=== PATIENT | male | born 1935 | race Caucasian/White ===

== ENCOUNTER → 2017-03-27 | Outpatient (REF) | payer MEDICARE, OTHER | LOC: M LAB REF 12:42 | PROVIDERS: ATTEND Internal Medicine | DX: M10.9 Gout, unspecified (principal) ==

== ENCOUNTER 2017-06-24 07:38 | Observation (INO) | payer MEDICARE, OTHER ==
[~2017-06-24] VITALS: Ht 177.8 cm; Wt 98.7 kg
[2017-06-24] MEDS ORDERED: HYDR12.55 PO (07:54)
[2017-06-24] MEDS ORDERED: AMLO10TA PO (07:54)
[2017-06-24] MEDS ORDERED: FLOM5CAP PO (07:54)
[2017-06-24] MEDS ORDERED: PRED20TA PO (07:54)
[2017-06-24] MEDS ORDERED: ATOR1TAB19 PO (07:54)
[2017-06-24] MEDS ORDERED: ZYLO100T PO (07:54)
[2017-06-24] MEDS ORDERED: IRBE150T12 PO (07:54)
[2017-06-24] MEDS ORDERED: KETOROLAC 30 MG/ML VIAL (J1885) IM ONE (09:45)
[2017-06-24 09:53] LABS: BASO # 0.1 K/mm3 (0.0-0.2); BASO % 0.6 % (0.0-1.0); EOS # 0.3 K/mm3 (0.0-0.50); EOS % 2.7 % (0.0-3.0); LARGE UNSTAINED CELL # 0.1 K/mm3 (0.0-0.4); LARGE UNSTAINED CELL % 1.2 % (0.0-4.0); LYMPH # 1.3 K/mm3 (1.5-4.5); LYMPH % 12.5 % (24.0-44.0); MEAN CORPUSCULAR HEMOGLOBIN 32.9 pg (27.0-33.0); MEAN CORPUSCULAR HGB CONC 35.8 g/dl (32.0-36.5); MEAN CORPUSCULAR VOLUME 91.9 fl (80.0-96.0); MONO # 0.9 K/mm3 (0.0-0.8); MONO % 8.6 % (0.0-5.0); NEUTROPHILS # 7.7 K/mm3 (1.8-7.7); NEUTROPHILS % 74.5 % (36.0-66.0); PLATELET COUNT, AUTOMATED 193 k/mm3 (150-450); RED CELL DISTRIBUTION WIDTH 12.3 % (11.5-14.5); WHITE BLOOD COUNT 10.3 K/mm3 (4.0-10.0)
[2017-06-24] MEDS ORDERED: KETOROLAC 30 MG/ML VIAL (J1885) IV ONE (10:00)
[2017-06-24 10:13] LABS: ALBUMIN 3.7 GM/DL (3.2-5.2); ALBUMIN/GLOBULIN RATIO 1.16 (1.00-1.93); ALKALINE PHOSPHATASE 90 U/L (45-117); ALT/SGPT 34 U/L (12-78); AMYLASE 38 U/L (25-115); ANION GAP 8 MEQ/L (8-16); AST/SGOT 19 U/L (15-37); BILIRUBIN,TOTAL 1.9 MG/DL (0.2-1.0); BLOOD UREA NITROGEN 23 MG/DL (7-18); CARBON DIOXIDE LEVEL 30 MEQ/L (21-32); CHLORIDE LEVEL 102 MEQ/L (98-107); CREATININE FOR GFR 0.96 MG/DL (0.70-1.30); GLOMERULAR FILTRATION RATE > 60.0 (>35); GLUCOSE, FASTING 98 MG/DL (83-110); POTASSIUM SERUM 3.5 MEQ/L (3.5-5.1); SODIUM LEVEL 140 MEQ/L (136-145); TOTAL PROTEIN 6.9 GM/DL (6.4-8.2)
[2017-06-24] MEDS ORDERED: NS 1,000 ML IV ONE (11:00)
[2017-06-24] MEDS ORDERED: ERTAPENEM SODIUM 1 GM in NS MINI-BAG PLUS 50 ML IV ONE (12:00)
[2017-06-24] MEDS ORDERED: ACETAMINOPHEN TAB 650MG DOSE (2X325MG) PO PRN (13:15)
[2017-06-24] MEDS ORDERED: ONDANSETRON 4MG/2ML VIAL (J2405) IV PRN (13:15)
[2017-06-24] MEDS ORDERED: NS 1,000 ML IV SCH (13:30)
[2017-06-24] MEDS ORDERED: ASPI1TAB PO (13:50)
--- NOTE | 2017-06-24 13:54 | HPE ---
DATE OF ADMISSION: 06/24/2017 This is a patient of Dr. Earl. The patient's pain management doctor is in [place], [place]. CHIEF COMPLAINT: Diarrhea. SUMMARY OF HIS PRESENTATION: This is an 81-year-old with a three-day history of abdominal pain and diarrhea. He had been having increasing left-sided buttock pain within the last week. This was similar to his previous episodes of sciatica. He has a history of spinal stenosis. He went to Dr. Earl's office and was given a prescription for steroids. The steroids resulted in abdominal pain and diarrhea, multiple times a day, too many to count, made worse with eating. He called for further advise. He was told to decrease the dose in half. He has continued with painful diarrhea he could not stop. He was able to go out to eat to [place] last night but had to leave abruptly because again he was having further diarrhea. He has not had any recent antibiotics. He uses [facility]. No recent history of travel. No known sick contacts. PAST MEDICAL HISTORY: Notable for an abscessed Meckel's diverticula, gallbladder removal, removal of the right portion of his kidney presumably related to renal cell carcinoma, history of spinal stenosis status post multiple epidurals. He is unsure of when he had the last one. Past medical history is notable for gout, hypertension, benign prostatic hypertrophy, hyperlipidemia, spinal stenosis, presumed renal cell carcinoma. ALLERGIES: He has no known drug allergies. MEDICATIONS: At home are listed as allopurinol, Norvasc, prednisone, irbesartan, Flomax, hydrochlorothiazide, atorvastatin. FAMILY HISTORY: Unremarkable due to advanced age. SOCIAL HISTORY: He has never been a smoker. 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 REVIEW OF SYSTEMS: Notable for no headache. No visual changes. No weight gain or weight loss. No night sweats. No chest pain. No orthopnea. No paroxysmal nocturnal dyspnea. Abdominal pain as described. No history of seizures. Otherwise unremarkable. PHYSICAL EXAMINATION: Temperature is 97.7, pulse 56, respiratory rate 20, blood pressure 116/74, 95% on room air. Body mass index is 31.2. He is awake, appropriately interactive, pleasantly conversant with deeply tanned skin. Sinuses are nontender. Pupils are equal, round, and reactive, show evidence of cataract extraction. Nasal septum is midline. Mucous membranes are tacky. Neck is supple. No cervical, supraclavicular, axillary or inguinal adenopathy is noted. Breathing is symmetrical, rested. I:E ratio is 1:3. No costovertebral angle (CVA) tenderness. No sacral edema. Heart is distant sounding, normal S1, S2. He has a systolic ejection murmur 3/6 at the left sternal border. No obvious radiation. Capillary refill is less than two seconds. Abdomen is notable for hyperactive bowel sounds. Mild diffuse tenderness without rebound or guarding. There is trace bilateral lower extremity edema. LABORATORY DATA: White cell count is 10.3, hemoglobin 17, platelets 193, neutrophils 74%, monocytes 8.6. Sodium 140, potassium 3.5, chloride 102, bicarbonate 30, BUN 23, creatinine 0.9, glucose of 98. Liver function tests and lipase within normal limits. Urine culture is pending. Abdominal and pelvic CT is read by a local radiologist as left colonic diverticulosis with fat stranding and mural thickening suggesting sigmoid colonic diverticulitis. No abscess or free air. He has retroperitoneal and bilateral iliac lymphadenopathy with the largest node being 2.5 x 2 cm and this is a new finding. Status post partial right nephrectomy and cholecystectomy. There is no EKG for me to review. ASSESSMENT: This is an 81-year-old with left-sided diverticulitis requiring an observation stay. PLAN: 1. Infectious disease. I am concerned about the possibility of clostridium (C) difficile colitis. We will give the patient Cipro for the possibility of diverticulitis and oral vancomycin. In consideration of C. difficile, (gastrointestinal) panel is ordered and pending. The patient has had previous colonoscopies, the last was within a couple of years ago according to the patient, done in [place], [place] and was without polyps. The previous one prior to that was five years before which showed five polyps. 2. The patient has a history of hypertension. We will put hold parameters on his home medications. We will give him a little bit of IV fluids. At this point, as he has had relatively profuse diarrhea, we will also give a low residual diet. 3. The patient has sciatica which has improved according to him. We will not order any further steroids. 4. The patient has gout. We will continue his allopurinol. 5. The patient has benign prostatic hypertrophy (BPH). We will continue his Flomax. 6. Deep vein thrombosis (DVT) prophylaxis is ordered.
[2017-06-24 16:00] VITALS: BP 153/69
[2017-06-24] MEDS: TAMSULOSIN 0.4 MG CAP PO SCH (17:26)
[2017-06-24] MEDS: amLODIPine 10 MG TAB PO SCH (17:26)
[2017-06-24] MEDS: IRBESARTAN 150 MG TAB PO SCH (17:27)
[2017-06-24] MEDS: VANCOMYCIN ORAL SOL 250MG/5ML ORAL SYRINGE PO SCH ×2 (17:29→23:14)
[2017-06-24] MEDS: CIPROFLOXACIN 400 MG in APPROPRIATE DILUENT 1 EA IV SCH (17:29)
[2017-06-24 20:39] VITALS: BP 133/63
[2017-06-24] MEDS: HEPARIN SOD (PORCINE) 5000 UNITS/ML VIAL SC SCH (20:50)
[2017-06-24] MEDS ORDERED: ATORVASTATIN 10 MG TAB PO SCH (21:00)
[2017-06-25 05:10] VITALS: BP 149/69
[2017-06-25] MEDS: CIPROFLOXACIN 400 MG in APPROPRIATE DILUENT 1 EA IV SCH (05:45)
[2017-06-25] MEDS: VANCOMYCIN ORAL SOL 250MG/5ML ORAL SYRINGE PO SCH (05:45)
--- NOTE | 2017-06-25 07:59 | ECGEPIP ---
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
[2017-06-25] MEDS: TAMSULOSIN 0.4 MG CAP PO SCH (08:57)
[2017-06-25 08:58] VITALS: BP 149/69
[2017-06-25] MEDS: HEPARIN SOD (PORCINE) 5000 UNITS/ML VIAL SC SCH (08:58)
[2017-06-25] MEDS: IRBESARTAN 150 MG TAB PO SCH (08:58)
[2017-06-25] MEDS: amLODIPine 10 MG TAB PO SCH (08:58)
[2017-06-25] MEDS ORDERED: ALLOPURINOL 100 MG TAB PO SCH (09:00)
[2017-06-25] MEDS ORDERED: CIPR-249 PO (11:22)
[2017-06-25] MEDS ORDERED: FLAG500T PO (11:22)
[2017-06-25] MEDS ORDERED: BACITAB PO (11:22)
--- NOTE | 2017-06-25 12:38 | REP ---
CT CHEST WITHOUT CONTRAST: HISTORY: Adenopathy. Retroperitoneal adenopathy seen on today's abdominal CT study. CT FINDINGS: No infiltrate is seen in the lung haddad. No pleural or pericardial effusion is seen. There is a small triangular area of fibrosis in the left lower lobe on image number 69 of the lung window settings. No other pulmonary nodular opacity is seen. There is no evidence of hilar or mediastinal adenopathy on this noncontrast study. Vascular calcification is noted. No axillary or supraclavicular adenopathy is seen. Bone window settings show no bony destructive lesion. There is one left retrocrural lymph node which measures 1.1 cm in greatest diameter. IMPRESSION: No adenopathy is seen above the diaphragm. Borderline retrocrural lymph node 1.1 cm in diameter. Vascular calcification. Otherwise, no acute findings. Signed by Jose Maria Gonzalez MD 06/25/2017 12:41 P
--- NOTE | 2017-06-25 13:53 | REP ---
CT study abdomen and pelvis without IV or oral contrast: Renal stone protocol. History: Left-sided pain. The patient gives a history of renal cell carcinoma status post partial right nephrectomy. Comparison study June 23, 2010. CT findings: Preliminary industrial technologist radiograph demonstrates an unremarkable bowel gas pattern. There are clips in right upper and right mid to lower abdomen. The lung bases are clear. There is no evidence of pleural effusion. The liver and the spleen are normal in size and homogeneous in texture. A small accessory splenule is seen. No pancreatic abnormality is observed. The gallbladder is surgically absent. There are clips in the perinephric fat on the right and there are areas of peripherally calcified fat density material in the perinephric fat on the right as well adjacent the upper pole and lower pole consistent with postoperative fat necrosis. There is a little more calcification in these them but they are otherwise unchanged from the 2010 study. No recurrent renal mass lesion is seen. No hydronephrosis is seen on either side. There is vascular calcification in each renal sinus. No definite intrarenal nephrolithiasis is noted. However, there is new retroperitoneal lymphadenopathy just below the level of the renal vascular pedicles and extending down to the aortic bifurcation. There are some mildly enlarged left and right iliac lymph nodes. No inguinal adenopathy is seen. There is diverticulosis affecting the sigmoid colon and the descending colon. There is some fluid in the left lower paracolic gutter and there is a suggestion of mild mural thickening and pericolonic edema in the sigmoid colon which may reflect mild sigmoid diverticulitis. No bony destructive lesion is seen. No abdominal wall defect is observed. Impression: 1. Left colonic diverticulosis with fat stranding and mural thickening suggesting sigmoid colon diverticulitis. No abscess or free air. 2. Retroperitoneal and bilateral iliac lymphadenopathy. The largest of these lymph nodes is a aortocaval node measuring 2.5 x 2.0 cm. This is a new finding. Lymphoma versus metastatic disease. 3. Status post partial right nephrectomy and cholecystectomy. Signed by Jose Maria Gonzalez MD 06/25/2017 03:05 P
--- NOTE | 2017-06-25 16:03 | DSES ---
DATE OF ADMISSION: 06/24/2017 DATE OF DISCHARGE: 06/25/2017 PRIMARY CARE PROVIDER: David Earl Jr., MD CONSULTANTS: None. PROCEDURES: None. COMPLICATIONS: None. DISCHARGE DIAGNOSES: 1. Diverticulitis. 2. Retroperitoneal and bilateral iliac lymphadenopathy. 3. History of renal cell carcinoma. 4. Hypertension. 5. Sciatica. 6. Gout. 7. Benign prostatic hypertrophy. 8. History of abscess and Meckel's diverticulum. 9. History of spinal stenosis status post multiple epidurals. 10. Hyperlipidemia. HOSPITALIZATION COURSE: Patient is an 81-year-old male who presented to [facility] on 06/24/2017, with abdominal pain and diarrhea. Diagnostic workup was performed and patient was found to have diverticulitis. Workup for Clostridium (C) difficile was also started. Patient was started on empiric antibiotics. Later, gastrointestinal (GI) panel showed negative for C. difficile and antibiotic regimen was adjusted. However, the CT abdomen and pelvis without contrast showed patient has multiple retroperitoneal and bilateral iliac lymphadenopathy and differential involving lymphoma versus metastatic disease. After reviewing the imaging with radiology and discussing the case with oncologist, Dr. Douglass, patient is recommended to followup in the oncology clinic to pursue further workup. Since admission, patient's symptoms show significant improvements and on 06/25/2017, patient is discharged home with antibiotic for diverticulitis and patient is instructed to followup with primary care provider in 1-2 weeks and patient should followup with oncology clinic within 2 weeks and a referral letter was sent through our hospital. OBJECTIVE: VITAL SIGNS: Temperature 98.1, pulse 58, respirations 18, blood pressure 149/69, pulse oximetry 95% in room air. LABORATORY DATA: WBC 10.3, hemoglobin 17, hematocrit 47.4, platelet count 193. Sodium 140, potassium 3.5, chloride 102, carbon dioxide 30, BUN 23, creatinine 0.96, GFR greater than 60, fasting glucose 98, calcium 9, total bilirubin 1.9, AST 19, ALT 34, alkaline phosphatase 30, total protein 6.9, albumin 3.7, amylase 38, lipase 92, TSH 2.64. Carcinoembryonic antigen level (CEA) pending. Urinalysis negative. Microbiology: Urine culture is negative. GI panel is negative. IMAGING STUDIES: CT of the abdomen and pelvis without contrast on 06/24/2017, showed left colonic diverticulosis with fat stranding and mural thickening suggestive of sigmoid colon diverticulitis. No abscess or free air. Retroperitoneal and bilateral iliac lymphadenopathy. Largest lymph node is measured at 2.5 x 2 cm. DISCHARGE MEDICATIONS: - ciprofloxacin 500 mg by mouth twice a day for 7 days - Flagyl 500 mg by mouth every 8 hours for 7 days - Bacid one tablet by mouth with meals for 7 days - allopurinol 100 mg by mouth daily - Norvasc 10 mg by mouth daily - aspirin 81 mg by mouth daily - atorvastatin 10 mg by mouth daily - hydrochlorothiazide 15.5 mg by mouth daily - irbesartan 150 mg by mouth daily - Flomax 0.4 mg by mouth daily DISCHARGE INSTRUCTIONS: Discontinue lines. Discharge home. Activity as tolerated. Diet as tolerated. Patient is recommended to followup with primary care provider, Dr. Earl, in 1-2 weeks. Patient is recommended to establish and followup with oncology clinic within 2 weeks. A referral request is sent through the hospitalist office. Case also discussed with oncologist, Dr. Sylvia Douglass. DISCHARGE CONDITION: Stable. DISCHARGE TIME: Greater than 30 minutes.
[2017-06-26 11:41] LABS: CARCINOEMBRYONIC ANTIGEN 3.3 NG/ML (<2.5)
== END 2017-06-25 13:14 | disposition home or self-care (01) ==
LOC: M ED 07:38 → M ED INP 13:12 → M MSPAV 16:00
PROVIDERS: ADMIT Internal Medicine; ATTEND Internal Medicine
DX: K57.32 Diverticulitis of large intestine without perforation or abscess without bleeding (principal); R59.0 Localized enlarged lymph nodes; Z85.528 Personal history of other malignant neoplasm of kidney; I10 Essential (primary) hypertension; M54.30 Sciatica, unspecified side; M10.9 Gout, unspecified; N40.0 Benign prostatic hyperplasia without lower urinary tract symptoms; M48.00 Spinal stenosis, site unspecified; E78.5 Hyperlipidemia, unspecified; R10.9 Unspecified abdominal pain; Z79.899 Other long term (current) drug therapy; Z79.82 Long term (current) use of aspirin; Z79.52 Long term (current) use of systemic steroids
CPT/HCPCS: 71250; 74176; 80053; 81001; 82150; 82378; 83690; 84443; 85025; 87086; 87507; 93005; 96365; 96375; 96376; 99284; G0378; J0744; J1335; J1885

== ENCOUNTER → 2017-07-17 | Outpatient (CLI) | payer MEDICARE, OTHER ==
[~2017-07-17] MED LIST: AMLO10TA PO; ASPI1TAB PO; ATOR1TAB19 PO; BACITAB PO; CIPR-249 PO; FLAG500T PO; FLOM5CAP PO; HYDR12.55 PO; IRBE150T12 PO; PRED20TA PO; ZYLO100T PO
--- NOTE | 2017-07-17 15:49 | REP ---
PET/CT: History: Lymphadenopathy. The patient is status post partial right nephrectomy for renal carcinoma. Restaging. Comparisons: Comparison CT abdomen and pelvis June 24, 2017. Comparison chest CT June 24, 2017. There is a comparison CT study from June 23, 2010 as well. TECHNIQUE: 51 minutes following the intravenous injection of a 10.1 mCi dose of F-18 FDG, three-dimensional PET scintigraphy is acquired from the skull base to the proximal thighs. Triplanar noncontrast CT scanning is acquired through the same anatomic range for attenuation correction, and image registration with scan parameters optimized to minimize radiation exposure to the patient. PET scintigraphy and CT datasets were fused and displayed on a workstation with multiplanar and projection display capability. PET/CT Findings: There is low-level hypermetabolic uptake the periaortic and pericaval lymphadenopathy noted on recent CTs in the retroperitoneum. Maximum standard uptake value ranges from 2.5 to 3.3 in these mildly enlarged lymph nodes. There is hypermetabolic uptake in the bilateral internal iliac lymph nodes as well, maximum standard uptake value 3.0 to 3.9. No other abnormal hypermetabolic uptake is seen. Postoperative changes are seen in the gallbladder fossa, at the right kidney, and in the right lower abdomen. No abnormal hepatic hypermetabolic uptake is seen. No hypermetabolic uptake is seen within the chest. No evidence of pulmonary nodule. No abnormal skeletal hypermetabolic uptake is seen. Impression: The recently noted retroperitoneal and bilateral iliac lymphadenopathy is mildly hypermetabolic. I cannot exclude lymphoproliferative or other malignancy. Signed by Jose Maria Gonzalez MD 07/17/2017 04:09 P
== END ==
LOC: M PLARAD 09:11
PROVIDERS: ATTEND Internal Medicine Medical Oncology
DX: R59.0 Localized enlarged lymph nodes (principal); C64.1 Malignant neoplasm of right kidney, except renal pelvis
CPT/HCPCS: 78815; A9552

== ENCOUNTER → 2017-07-19 | Outpatient (REF) | payer MEDICARE, OTHER | LOC: M LAB REF 12:56 | PROVIDERS: ATTEND Internal Medicine Medical Oncology | DX: R59.0 Localized enlarged lymph nodes (principal) ==

== ENCOUNTER → 2017-07-26 | Outpatient (CLI) | payer MEDICARE, OTHER ==
--- NOTE | 2017-07-26 16:13 | REP ---
MRI lumbar spine without contrast: History: Progressive lumbar radiculopathy. Prior history of kidney carcinoma. History of retroperitoneal lymphadenopathy. Comparison is made with PET-CT images from July 17, 2017. Intravenous contrast could not be administered as requested because of lack of IV access. Technique: Sagittal and axial T1 and T2-weighted scans are acquired in the usual fashion with and without fat saturation. Sequences include spin echo, turbo spin-echo, and STIR imaging sequences. MRI findings: Periaortic retroperitoneal lymphadenopathy is noted as seen on recent PET/CT. Normal caliber aorta. No other extra spinal abnormality is observed. Cortical and medullary bone signal intensity are normal. Alignment is normal. Conus medullaris is normal in position and appearance at L1. Axial and sagittal images at L1-L2 disc level show moderate facet hypertrophy bilaterally. Borderline canal size is seen. Minimal diffuse disc bulging. AP dimension of the thecal sac at this level is 10 mm. No neural foraminal narrowing is seen. At L2-L3, there is mild central canal stenosis due to developmentally short pedicles, diffuse disc bulging, and ligamentum flavum and facet hypertrophy. Midline AP dimension of the thecal sac is 9 mm at this level. No neural foraminal narrowing. At L3-L4, there is mild to moderate central canal stenosis due to short pedicles, diffuse disc bulging, ligamentum flavum and facet hypertrophy. AP dimension of the thecal sac at this level is 10 mm. There is moderate right and left-sided L3-4 neural foraminal encroachment. At L4-L5, there is moderate to marked central canal stenosis due to posterior disc bulging, osteophytic ridging, short pedicles and severe osteoarthritic facet and ligamentum flavum hypertrophy. The thecal sac is quite effaced with no observable T2-weighted CSF signal. A 7 mm mid sagittal AP dimension is observed. There is marked bilateral neural foraminal narrowing at L4-L5. At L5-S1, there is facet hypertrophy bilaterally. No central canal stenosis is seen. There is moderate left-sided and minimal right-sided neural foraminal encroachment. Impression: 1. Retroperitoneal lymphadenopathy. 2. 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 Multilevel significant neural foraminal narrowing. Mild central canal stenosis at L3-4 and L2-3. Advanced osteoarthritic facet disease. Signed by Jose Maria Gonzalez MD 07/26/2017 06:02 P
== END ==
LOC: M RAD 10:19
PROVIDERS: ATTEND Internal Medicine Medical Oncology
DX: R59.0 Localized enlarged lymph nodes (principal); M47.26 Other spondylosis with radiculopathy, lumbar region

== ENCOUNTER 2018-04-27 14:23 | Emergency (ER) | payer MEDICARE, OTHER ==
[2018-04-27] MEDS: NS 1,000 ML IV (14:46)
[2018-04-27 16:37] LABS: BASO # 0.1 10^3/uL (0.0-0.2); BASO % 0.3 % (0.0-1.0); EOS # 0.1 10^3/uL (0.0-0.50); EOS % 0.4 % (0.0-3.0); HEMATOCRIT 33.2 % (42.0-52.0); HEMOGLOBIN 10.9 g/dl (13.5-17.5); IMMATURE GRANULOCYTE % 3.1 % (0-3.0); LYMPH # 1.1 10^3/uL (1.5-4.5); LYMPH % 6.2 % (24.0-44.0); MEAN CORPUSCULAR HEMOGLOBIN 31.3 pg (27.0-33.0); MEAN CORPUSCULAR HGB CONC 32.8 g/dl (32.0-36.5); MEAN CORPUSCULAR VOLUME 95.4 fl (80.0-96.0); MONO # 0.7 10^3/uL (0.0-0.8); MONO % 3.8 % (0.0-5.0); NEUTROPHILS # 15.2 10^3/uL (1.8-7.7); NEUTROPHILS % 86.2 % (36.0-66.0); PLATELET COUNT, AUTOMATED 141 10^3/uL (150-450); RED BLOOD COUNT 3.48 10^6/uL (4.30-6.10); RED CELL DISTRIBUTION WIDTH 15.1 % (11.5-14.5); WHITE BLOOD COUNT 17.6 10^3/uL (4.0-10.0)
[2018-04-27 16:59] LABS: ALBUMIN 2.5 GM/DL (3.2-5.2); ALBUMIN/GLOBULIN RATIO 0.96 (1.00-1.93); ALKALINE PHOSPHATASE 109 U/L (45-117); ALT/SGPT 14 U/L (12-78); ANION GAP 8 MEQ/L (8-16); AST/SGOT 13 U/L (7-37); BILIRUBIN,DIRECT 0.2 MG/DL (0.0-0.2); BILIRUBIN,TOTAL 0.6 MG/DL (0.2-1.0); BLOOD UREA NITROGEN 5 MG/DL (7-18); CALCIUM LEVEL 7.7 MG/DL (8.8-10.2); CARBON DIOXIDE LEVEL 30 MEQ/L (21-32); CHLORIDE LEVEL 105 MEQ/L (98-107); CREATININE FOR GFR 0.68 MG/DL (0.70-1.30); GLOMERULAR FILTRATION RATE > 60.0 (>35); GLUCOSE, FASTING 111 MG/DL (70-100); LIPASE 78 U/L (73-393); POTASSIUM SERUM 3.6 MEQ/L (3.5-5.1); SODIUM LEVEL 143 MEQ/L (136-145); TOTAL PROTEIN 5.1 GM/DL (6.4-8.2)
[2018-04-27 17:00] LABS: LACTIC ACID SEPSIS PROTOCOL 1.3 MMOL/L (0.4-2.0)
== END 2018-04-27 17:53 | disposition home or self-care (01) ==
LOC: M ED 14:23
DX: A04.72 Enterocolitis due to Clostridium difficile, not specified as recurrent (principal); I48.92 Unspecified atrial flutter; I10 Essential (primary) hypertension; C61 Malignant neoplasm of prostate; Z85.528 Personal history of other malignant neoplasm of kidney; Z90.5 Acquired absence of kidney; Z92.21 Personal history of antineoplastic chemotherapy; I51.7 Cardiomegaly; Z79.01 Long term (current) use of anticoagulants; Z79.899 Other long term (current) drug therapy
CPT/HCPCS: 71046

== ENCOUNTER → 2018-04-30 | Outpatient (CLI) | payer MEDICARE, OTHER | LOC: M CARPUL 11:49 | DX: I48.92 Unspecified atrial flutter (principal); I42.1 Obstructive hypertrophic cardiomyopathy; Z79.899 Other long term (current) drug therapy | CPT/HCPCS: 93306 ==

== ENCOUNTER → 2018-05-02 | Outpatient (CLI) | payer MEDICARE, OTHER | LOC: M RAD 11:59 | DX: J90 Pleural effusion, not elsewhere classified (principal); I51.7 Cardiomegaly; R59.1 Generalized enlarged lymph nodes; C61 Malignant neoplasm of prostate; C77.2 Secondary and unspecified malignant neoplasm of intra-abdominal lymph nodes; C60.9 Malignant neoplasm of penis, unspecified; Z85.528 Personal history of other malignant neoplasm of kidney | CPT/HCPCS: 71046 ==

== ENCOUNTER → 2018-05-02 | Outpatient (REF) | payer MEDICARE, OTHER ==
[2018-05-02 20:09] LABS: ERYTHROCYTE SEDIMENTATION RATE 62 mm/hr (0-20)
== END ==
LOC: M LAB REF 17:26
DX: R59.1 Generalized enlarged lymph nodes (principal); C61 Malignant neoplasm of prostate; C77.2 Secondary and unspecified malignant neoplasm of intra-abdominal lymph nodes; C60.9 Malignant neoplasm of penis, unspecified; I51.7 Cardiomegaly; Z85.528 Personal history of other malignant neoplasm of kidney

== ENCOUNTER → 2018-05-06 | Outpatient (REF) | payer MEDICARE, OTHER ==
[2018-05-06 14:23] LABS: PROSTATIC SPECIFIC AG MONITOR 0.82 NG/ML (< 4.0)
== END ==
LOC: M LAB REF 13:22
DX: Z85.528 Personal history of other malignant neoplasm of kidney (principal); R59.1 Generalized enlarged lymph nodes; C61 Malignant neoplasm of prostate; C77.2 Secondary and unspecified malignant neoplasm of intra-abdominal lymph nodes; R60.9 Edema, unspecified; I51.7 Cardiomegaly
CPT/HCPCS: 84153

== ENCOUNTER → 2018-05-09 | Outpatient (CLI) | payer MEDICARE, OTHER ==
[~2018-05-09] MED LIST changes: -AMLO10TA PO; -ASPI1TAB PO; -ATOR1TAB19 PO; -BACITAB PO; -CIPR-249 PO; -FLAG500T PO; -FLOM5CAP PO; +GASTROGRAFIN SOLUTION 30ML (Q9963) As Ordered; -HYDR12.55 PO; -IRBE150T12 PO; +ISOVUE-370 76% 100ML VIAL (Q9967) As Ordered; -PRED20TA PO; -ZYLO100T PO
== END ==
LOC: M RAD 14:03
DX: C61 Malignant neoplasm of prostate (principal); J90 Pleural effusion, not elsewhere classified; J98.11 Atelectasis; I70.0 Atherosclerosis of aorta; I25.10 Atherosclerotic heart disease of native coronary artery without angina pectoris; K57.30 Diverticulosis of large intestine without perforation or abscess without bleeding
CPT/HCPCS: Q9963

== ENCOUNTER → 2018-07-12 | Outpatient (REF) | payer MEDICARE, OTHER ==
[2018-07-12 14:29] LABS: PROSTATIC SPECIFIC AG MONITOR 0.45 NG/ML (< 4.0)
== END ==
LOC: M LAB REF 13:27
DX: R59.1 Generalized enlarged lymph nodes (principal); Z85.528 Personal history of other malignant neoplasm of kidney; C61 Malignant neoplasm of prostate; C77.2 Secondary and unspecified malignant neoplasm of intra-abdominal lymph nodes; R60.9 Edema, unspecified; I51.7 Cardiomegaly
CPT/HCPCS: 84153

== ENCOUNTER 2019-04-26 19:12 | Emergency (ER) | payer MEDICARE, OTHER ==
[~2019-04-26] VITALS: Ht 177.8 cm; Wt 90.9 kg
[2019-04-26 19:12] VITALS: BP 187/91
[~2019-04-26 19:12] MED LIST changes: +AMLO10TA PO; +ASPI81TA26 PO; +ATOR1TAB19 PO; +BACITAB PO; +CIPR-249 PO; +ELIQ2.5T PO; +FLAG500T PO; +FLOM0.4C39 PO; -GASTROGRAFIN SOLUTION 30ML (Q9963) As Ordered; +HYDR-3910 PO; +HYDR12.55 PO; +IRBE150T12 PO; -ISOVUE-370 76% 100ML VIAL (Q9967) As Ordered; +LEVO500T3 PO; +METO1TAB7 PO; +PRED20TA PO; +VANC125C3 PO; +VITAD1000T PO; +ZYLO100T2 PO
[2019-04-26] MEDS ORDERED: LOSA25TA14 PO (19:27)
[2019-04-26] MEDS ORDERED: MORPHINE 4 MG/ML 1ML VIAL/SYRINGE (J2270) IV ONE (20:15)
[2019-04-26 20:48] LABS: BASO # 0.1 10^3/uL (0.0-0.2); BASO % 0.9 % (0.0-1.0); EOS # 0.4 10^3/uL (0.0-0.50); EOS % 4.9 % (0.0-3.0); HEMATOCRIT 45.8 % (42.0-52.0); HEMOGLOBIN 15.7 g/dl (13.5-17.5); LYMPH # 1.4 10^3/uL (1.5-4.5); LYMPH % 18.3 % (24.0-44.0); MEAN CORPUSCULAR HEMOGLOBIN 31.9 pg (27.0-33.0); MEAN CORPUSCULAR HGB CONC 34.3 g/dl (32.0-36.5); MEAN CORPUSCULAR VOLUME 93.1 fl (80.0-96.0); MONO # 0.6 10^3/uL (0.0-0.8); MONO % 8.5 % (0.0-5.0); NEUTROPHILS # 5.1 10^3/uL (1.8-7.7); PLATELET COUNT, AUTOMATED 165 10^3/uL (150-450); RED BLOOD COUNT 4.92 10^6/uL (4.30-6.10); WHITE BLOOD COUNT 7.6 10^3/uL (4.0-10.0)
[2019-04-26 21:08] LABS: BLOOD UREA NITROGEN 22 MG/DL (7-18); CALCIUM LEVEL 9.4 MG/DL (8.8-10.2); CARBON DIOXIDE LEVEL 31 MEQ/L (21-32); CHLORIDE LEVEL 102 MEQ/L (98-107); CREATININE FOR GFR 1.04 MG/DL (0.70-1.30); GLOMERULAR FILTRATION RATE > 60.0 (>35); GLUCOSE, FASTING 118 MG/DL (70-100); POTASSIUM SERUM 3.7 MEQ/L (3.5-5.1); SODIUM LEVEL 141 MEQ/L (136-145)
--- NOTE | 2019-04-26 21:47 | REPVR ---
EXAM: CT Head Without Contrast EXAM DATE/TIME: 04/26/2019 7:39 PM CLINICAL HISTORY: 83 years old, male; Injury or trauma; Fall; Initial encounter; Concussion / head injury; Consciousness not specified; Additional info: Injury, hit head on blood thinners TECHNIQUE: Imaging protocol: Axial computed tomography images of the head without contrast. Radiation optimization: All CT scans at this facility use at least one of these dose optimization techniques: automated exposure control; mA and/or kV adjustment per patient size (includes targeted exams where dose is matched to clinical indication); or iterative reconstruction. COMPARISON: PT PET/CT SKULL BASE TO MID THIGH - OUTSIDE PRIOR 11/10/2017 2:59 PM (The report from this study was not available for review at the time of this interpretation.) FINDINGS: Brain: There is no evidence for an acute large vessel territorial infarct, intracranial hemorrhage, mass, mass effect, or herniation. There are non-specific foci of low attenuation in the periventricular and subcortical white matter, which are likely the sequela of chronic small vessel ischemic injury. Incidental note is made of mild benign enlargement of the subarachnoid spaces over the frontal convexities. Brainstem: Unremarkable. Midline shift: There is no midline shift. Ventricles: The ventricles are mildly to moderately dilated in proportion to the sulci, which is compatible with mild to moderate generalized cerebral volume loss. Bones/joints: No acute fracture. There is mild focal hyperostosis involving the inner table of the right frontal calvarium. No suspicious osteolytic or osteoblastic lesion. Sinuses: Visualized sinuses are unremarkable. No fluid levels. Mastoid air cells: Visualized mastoid air cells are well aerated. No mastoid effusion. Orbits: Incidental note is made of bilateral lens implants. Soft tissues: Unremarkable. Vasculature: There are atherosclerotic calcifications of the intracranial portion of the internal carotid arteries. IMPRESSION: 1. No CT evidence for an acute intracranial process. 2. Mild to moderate cerebral atrophy and chronic microangiopathic changes. Electronically signed by: Eros Hines On 04/26/2019 21:46:51 PM
--- NOTE | 2019-04-26 22:04 | REPVR ---
EXAM: CT Abdomen and Pelvis Without Contrast EXAM DATE/TIME: 04/26/2019 8:27 PM CLINICAL HISTORY: 83 years old, male; Pain; Trauma TECHNIQUE: Imaging protocol: Axial computed tomography images of the abdomen and pelvis without contrast. Coronal and sagittal reformatted images were created and reviewed. Radiation optimization: All CT scans at this facility use at least one of these dose optimization techniques: automated exposure control; mA and/or kV adjustment per patient size (includes targeted exams where dose is matched to clinical indication); or iterative reconstruction. COMPARISON: CT ABD PELVIS W/O FOL BY WIT 05/09/2018 3:36:[address] CHEST/ABD/PELVIS - OUTSIDE PRIOR 02/23/2018 4:13 PM FINDINGS: Liver: Unremarkable. No liver lesion is seen. The contour of the liver is smooth. No hepatomegaly is noted. Gallbladder and bile ducts: There has been a cholecystectomy. There is no fluid collection in the gallbladder fossa. No dilation of the bile ducts is noted. Pancreas: Unremarkable. No ductal dilation. Spleen: Unremarkable. No splenomegaly. Adrenals: Normal. No mass. Kidneys and ureters: There is no change in the appearance of the rim calcified right perinephric fat and fluid collection compared to the prior CT scans on 05/09/2018 and 02/23/2018. The left kidney is unremarkable. No stones are noted in the kidneys or ureters. There is no hydronephrosis or hydroureter. Stomach and bowel: There is duodenal and colonic diverticulosis without evidence for diverticulitis. There is no evidence for a bowel obstruction, colitis, pneumatosis intestinalis, intussusception, volvulus, or perforated viscus. Appendix: The appendix has been removed. Intraperitoneal space: Normal. No free air. No fluid collection. Retroperitoneal space: There are multiple surgical clips in the right retroperitoneum. No retroperitoneal hemorrhage is noted. Vasculature: The abdominal aorta is normal in caliber. There are extensive atherosclerotic calcifications. Lymph nodes: No enlarged lymph nodes. Bladder: Unremarkable. No calculi are noted in the bladder. Reproductive: No enlargement of the prostate gland is noted. The seminal vesicles are unremarkable. Bones/joints: The imaged bony structures are intact. There is no suspicious osteolytic or osteoblastic lesion. There are degenerative changes in the lumbar spine. There are also degenerative changes involving the sacroiliac joints and hip joints. Soft tissues: There is a tiny fat containing umbilical hernia. There is a midline vertical incision scar in the anterior abdominal wall. IMPRESSION: 1. No noncontrast CT evidence for acute traumatic injury in the abdomen or pelvis. 2. Duodenal and colonic diverticulosis without evidence for diverticulitis. Electronically signed by: Eros Hines On 04/26/2019 22:04:13 PM
--- NOTE | 2019-04-26 22:05 | REPVR ---
EXAM: CT Chest Without Contrast EXAM DATE/TIME: 04/26/2019 8:27 PM CLINICAL HISTORY: 83 years old, male; Pain; Trauma TECHNIQUE: Imaging protocol: Axial computed tomography images of the chest without intravenous contrast. Coronal and sagittal reformatted images were created and reviewed. Radiation optimization: All CT scans at this facility use at least one of these dose optimization techniques: automated exposure control; mA and/or kV adjustment per patient size (includes targeted exams where dose is matched to clinical indication); or iterative reconstruction. COMPARISON: SR - CT Chest with contrast 05/09/2018 3:36:[address] CHEST/ABD/PELVIS - OUTSIDE PRIOR 02/23/2018 4:13 PM (The reports from these studies were not available for review at the time of this interpretation.) FINDINGS: Lungs: The lungs are clear. There is no evidence for a pulmonary contusion or pulmonary laceration. There is no lung consolidation or mass. No emphysematous changes or interstitial lung disease is noted. The major airways are patent. The tracheobronchial tree is intact. Pleural space: Unremarkable. No pneumothorax. No pleural effusion. Heart: No cardiomegaly or pericardial effusion is noted. There are extensive calcifications of the aortic valve and coronary arteries. Mediastinum: No mediastinal mass, hemorrhage, or pneumomediastinum is noted. Aorta: There is no thoracic aortic aneurysm or intramural hematoma. There are moderate atherosclerotic calcifications. Lymph nodes: Normal. No enlarged lymph nodes. Bones/joints: No acute fracture. There are bridging paraspinal osteophytes at multiple contiguous levels in the cervical and thoracic spine, which is compatible with diffuse idiopathic skeletal hyperostosis. No suspicious osteolytic or osteoblastic lesion is noted. Soft tissues: Unremarkable. IMPRESSION: No noncontrast CT evidence for acute traumatic injury in the chest. Electronically signed by: Eros Hines On 04/26/2019 22:04:49 PM
[2019-04-26] MEDS ORDERED: KETOROLAC 30 MG/ML VIAL (J1885) IV ONE (22:15)
== END 2019-04-26 22:34 | disposition home or self-care (01) ==
LOC: M ED 19:12
DX: S20.222A Contusion of left back wall of thorax, initial encounter (principal); W01.0XXA Fall on same level from slipping, tripping and stumbling without subsequent striking against object, initial encounter; Y92.018 Other place in single-family (private) house as the place of occurrence of the external cause; I10 Essential (primary) hypertension; I48.91 Unspecified atrial fibrillation; Z79.899 Other long term (current) drug therapy; Z79.01 Long term (current) use of anticoagulants
CPT/HCPCS: 70450; 71250; 74176; 80048; 85025; 96374; 99284; J1885

== ENCOUNTER → 2019-12-29 | Outpatient (REF) | payer MEDICARE, OTHER ==
[~2019-12-29] MED LIST changes: +CHOL100029 PO; -IRBE150T12 PO; +IRBE150T7 PO; +LIPI10TA PO; +LOSA25TA14 PO; +VITA100054 PO; -VITAD1000T PO
[2019-12-29 20:20] LABS: CHLAMYDIA DNA AMPLIFICATION NEGATIVE (NEGATIVE); GC DNA AMPLIFICATION NEGATIVE (NEGATIVE)
== END ==
LOC: M SMT 16:48
PROVIDERS: ATTEND Nurse Practitioner Women's Health
DX: R36.9 Urethral discharge, unspecified (principal)
CPT/HCPCS: 87661; G0463

== ENCOUNTER → 2020-03-03 | Outpatient (REF) | payer MEDICARE, OTHER ==
[2020-03-03 13:59] LABS: BASO # 0.1 10^3/uL (0.0-0.2); BASO % 0.8 % (0.0-1.0); EOS # 0.5 10^3/uL (0.0-0.5); EOS % 6.5 % (0.0-3.0); HEMATOCRIT 43.6 % (42.0-52.0); HEMOGLOBIN 14.7 g/dl (13.5-17.5); LYMPH # 1.5 10^3/uL (1.5-5.0); LYMPH % 20.5 % (24.0-44.0); MEAN CORPUSCULAR HEMOGLOBIN 31.3 pg (27.0-33.0); MEAN CORPUSCULAR HGB CONC 33.7 g/dl (32.0-36.5); MEAN CORPUSCULAR VOLUME 92.8 fl (80.0-96.0); MONO # 0.6 10^3/uL (0.0-0.8); MONO % 8.3 % (0.0-5.0); NEUTROPHILS # 4.7 10^3/uL (1.5-8.5); NEUTROPHILS % 63.6 % (36.0-66.0); PLATELET COUNT, AUTOMATED 177 10^3/uL (150-450); WHITE BLOOD COUNT 7.4 10^3/uL (4.0-10.0)
[2020-03-03 15:43] LABS: ALBUMIN 4.1 GM/DL (3.2-5.2); BILIRUBIN,TOTAL 1.3 MG/DL (0.2-1.0); CALCIUM LEVEL 9.3 MG/DL (8.8-10.2); CHOLESTEROL RISK RATIO 2.745 (<5); CREATININE FOR GFR 1.24 MG/DL (0.70-1.30); POTASSIUM SERUM 4.7 MEQ/L (3.5-5.1); TOTAL PROTEIN 7.1 GM/DL (6.4-8.2)
== END ==
LOC: M LAB REF 13:34
PROVIDERS: ATTEND Internal Medicine
DX: I10 Essential (primary) hypertension (principal); E78.00 Pure hypercholesterolemia, unspecified

== ENCOUNTER 2021-01-31 12:36 | Emergency (ER) | payer MEDICARE, OTHER ==
[~2021-01-31] VITALS: Ht 177.8 cm; Wt 100.0 kg
[~2021-01-31 12:36] MED LIST changes: +AMLO1TAB25 PO; +LOSA50TA88 PO
[2021-01-31] MEDS ORDERED: AMLO1TAB24 (13:01)
[2021-01-31] MEDS ORDERED: NS 1,000 ML IV SCH (13:08)
[2021-01-31] MEDS ORDERED: ASPIRIN 81 MG CHEW TABLET PO ONE (13:10)
--- NOTE | 2021-01-31 13:33 | REP ---
INDICATION: CHEST PAIN. COMPARISON: Comparison chest x-ray May 02, 2018. TECHNIQUE: Portable upright AP chest radiograph. FINDINGS: Monitoring electrodes are seen. The lungs are well inflated and clear. The pleural angles are sharp. Heart is enlarged. Pulmonary vasculature is not increased.. IMPRESSION: Cardiomegaly. Otherwise no active disease.. <Electronically signed by Nic Gonzalez > 01/31/21 3030
[2021-01-31 13:34] LABS: BASO # 0.1 10^3/uL (0.0-0.2); BASO % 0.9 % (0.0-1.0); EOS # 0.3 10^3/uL (0.0-0.5); HEMATOCRIT 40.1 % (42.0-52.0); HEMOGLOBIN 13.6 g/dl (13.5-17.5); LYMPH # 1.1 10^3/uL (1.5-5.0); LYMPH % 13.7 % (24.0-44.0); MEAN CORPUSCULAR HEMOGLOBIN 32.2 pg (27.0-33.0); MEAN CORPUSCULAR HGB CONC 33.9 g/dl (32.0-36.5); MONO # 0.6 10^3/uL (0.0-0.8); MONO % 8.1 % (2.0-8.0); NEUTROPHILS # 5.7 10^3/uL (1.5-8.5); NEUTROPHILS % 72.8 % (36.0-66.0); PLATELET COUNT, AUTOMATED 158 10^3/uL (150-450); RED BLOOD COUNT 4.22 10^6/uL (4.30-6.10); WHITE BLOOD COUNT 7.8 10^3/uL (4.0-10.0)
[2021-01-31 13:44] LABS: INR 1.25; PROTHROMBIN TIME 15.9 SECONDS (12.5-14.3)
[2021-01-31 14:10] LABS: ALBUMIN 3.7 GM/DL (3.2-5.2); BILIRUBIN,DIRECT 0.2 MG/DL (0.0-0.2); CALCIUM LEVEL 9.2 MG/DL (8.8-10.2); CK-MB VALUE MASS 3.6 NG/ML (<3.6); CREATININE FOR GFR 1.31 MG/DL (0.70-1.30); GLOMERULAR FILTRATION RATE 55.2 (>35); MB/CK RELATIVE INDEX 4.29 (< OR =4); POTASSIUM SERUM 4.5 MEQ/L (3.5-5.1); THYROID STIMULATING HORMONE 4.78 uIU/ML (0.358-3.740); TOTAL PROTEIN 6.4 GM/DL (6.4-8.2); TROPONIN I 0.15 NG/ML (< 0.10)
[2021-01-31 15:32] LABS: RSV AMPLIFICATION NEGATIVE (NEGATIVE)
[2021-01-31 19:00] VITALS: BP 163/72
--- NOTE | 2021-02-01 05:10 | ECGEPIP ---
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
== END 2021-01-31 19:17 | disposition short-term general hospital (02) ==
LOC: M ED 12:36
DX: I20.9 Angina pectoris, unspecified (principal); I48.91 Unspecified atrial fibrillation; R00.1 Bradycardia, unspecified; I45.10 Unspecified right bundle-branch block; I11.9 Hypertensive heart disease without heart failure; N40.0 Benign prostatic hyperplasia without lower urinary tract symptoms; Z90.5 Acquired absence of kidney; Z79.899 Other long term (current) drug therapy; Z79.01 Long term (current) use of anticoagulants

== ENCOUNTER → 2021-03-04 | Outpatient (CLI) | payer MEDICARE, OTHER ==
[~2021-03-04] MED LIST changes: +AMLO1TAB24; +ATOR40TA75 PO; +PLAV1TAB2 PO; +VITA1CAP25 PO
== END ==
LOC: M LABSMTC 12:51
PROVIDERS: ATTEND Internal Medicine Cardiovascular Disease
DX: Z01.818 Encounter for other preprocedural examination (principal); Z11.52 Encounter for screening for COVID-19

== ENCOUNTER → 2021-03-21 | Outpatient (REF) | payer MEDICARE, OTHER | LOC: M WUC 20:47 | PROVIDERS: ATTEND Physician Assistant | DX: J02.9 Acute pharyngitis, unspecified (principal) ==

== ENCOUNTER → 2021-08-03 | Outpatient (CLI) | payer MEDICARE, OTHER ==
[~2021-08-03] MED LIST changes: +LOSA100T50
[2021-08-03 13:22] LABS: HEMATOCRIT 42.9 % (42.0-52.0); HEMOGLOBIN 14.4 g/dl (13.5-17.5); MEAN CORPUSCULAR HEMOGLOBIN 31.4 pg (27.0-33.0); MEAN CORPUSCULAR HGB CONC 33.6 g/dl (32.0-36.5); MEAN CORPUSCULAR VOLUME 93.7 fl (80.0-96.0); PLATELET COUNT, AUTOMATED 170 10^3/uL (150-450); RED BLOOD COUNT 4.58 10^6/uL (4.30-6.10); WHITE BLOOD COUNT 6.6 10^3/uL (4.0-10.0)
[2021-08-03 13:42] LABS: ALBUMIN 3.9 GM/DL (3.2-5.2); CALCIUM LEVEL 9.7 MG/DL (8.8-10.2); CREATININE FOR GFR 1.31 MG/DL (0.70-1.30); GLOMERULAR FILTRATION RATE 55.2 (>35); PHOSPHORUS LEVEL 3.1 MG/DL (2.5-4.9); POTASSIUM SERUM 4.1 MEQ/L (3.5-5.1)
== END ==
LOC: M LAB 12:27
PROVIDERS: ATTEND Internal Medicine Cardiovascular Disease
DX: I10 Essential (primary) hypertension (principal)

== ENCOUNTER → 2021-08-04 | Outpatient (CLI) | payer MEDICARE, OTHER | LOC: M LABSMTC 09:23 | PROVIDERS: ATTEND Anesthesiology | DX: Z01.818 Encounter for other preprocedural examination (principal); Z11.52 Encounter for screening for COVID-19 ==

== ENCOUNTER 2021-08-05 14:03 | Day surgery (SDC) | payer MEDICARE, OTHER ==
[~2021-08-05] VITALS: Ht 177.8 cm; Wt 99.5 kg
[~2021-08-05 14:03] MED LIST changes: +LIDOCAINE 2% 100MG/5ML SDV (FOR ANES.) As Ordered ONE; +LR 1,000 ML IV ONE; +MIDAZOLAM INJ 2MG/2ML VIAL (J2250 PER 1MG) As Ordered ONE; +ONDANSETRON 4MG/2ML VIAL As Ordered ONE; +ceFAZolin SOD 2 GM in IV 1 EA IV ONE; +dexameTHASONE 4 MG/ML 1ML VIAL (J1100 PER 1MG) As Ordered ONE; +fentaNYL 100 MCG/2 ML INJECTION (J3010) As Ordered ONE; +propofoL 200 MG/20 ML VIAL As Ordered ONE
[2021-08-05] MEDS ORDERED: propofoL 200 MG/20 ML VIAL As Ordered ONE (15:33)
[2021-08-05] MEDS ORDERED: LIDOCAINE 1% SDV 30ML VIAL As Ordered ONE (15:50)
[2021-08-05] MEDS ORDERED: ISOVUE-300 61% 50ML VIAL As Ordered ONE (15:51)
[2021-08-05] MEDS ORDERED: BACITRACIN OINTMENT 30GM TUBE As Ordered ONE (18:36)
[2021-08-05] MEDS ORDERED: LR 1,000 ML IV SCH (19:15)
[2021-08-05] MEDS ORDERED: fentaNYL 100 MCG/2 ML INJECTION (J3010) IV PRN (19:15)
[2021-08-05] MEDS ORDERED: ONDANSETRON 4MG/2ML VIAL IV PRN (19:15)
--- NOTE | 2021-08-05 19:16 | REP ---
INDICATION: S/P PACEMAKER. COMPARISON: Comparison chest x-ray January 31, 2021. TECHNIQUE: Portable upright AP chest radiograph. FINDINGS: A dual lead pacemaker is installed in the interval since the prior study. There are surgical clips adjacent to the power pack in the and in the subclavicular soft tissues. Mild cardiomegaly is observed. There is no visible pneumothorax or hydrothorax. IMPRESSION: Pacemaker in place. No complication seen. <Electronically signed by Nic Gonzalez > 08/05/211912
[2021-08-05] MEDS: amLODIPine 5 MG TAB PO SCH (19:29)
[2021-08-05 19:55] VITALS: BP 169/81
--- NOTE | 2021-08-05 20:16 | RO ---
OPERATIVE NOTE DATE OF OPERATION: 08/05/2021 PREOPERATIVE DIAGNOSIS: 1. Sick sinus syndrome/tachycardia syndrome. 2. Subcutaneous cardiac rhythm monitor in situ (Medtronic). POSTOPERATIVE DIAGNOSIS: 1. Sick sinus syndrome/tachycardia syndrome. 2. Subcutaneous cardiac rhythm monitor in situ (Medtronic). FINDINGS: 1. Sick sinus syndrome/tachycardia syndrome. 2. Subcutaneous cardiac rhythm monitor in situ (Medtronic). PROCEDURE PERFORMED: Implantation of a dual-chamber pacemaker (Medtronic). Explantation of Medtronic subcutaneous cardiac rhythm monitor. SURGEON: Gerald Mendez M.D. [employer] OPERATOR: None. ANESTHESIA: Lidocaine 1% local/monitored anesthetic care. SPECIMENS: Medtronic subcutaneous cardiac rhythm monitor (LINQ). ESTIMATED BLOOD LOSS: Less than 30 mL. BLOOD PRODUCTS REPLACED: None. DRAINS: None. COMPLICATIONS: None. PROCEDURE DESCRIPTION: Patient was prepped and draped over the left anterior chest. 3M Ioban film was applied. Lidocaine 1% was used for local anesthetic. The left subclavian vein was located with multiple injections for a total volume of 40 mL of a mixture of Isovue 5 parts to 1 part normal saline injected via a small peripheral vein in the left hand. Using fluoroscopic guidance with the help of the contrast dye under fluoroscopy and real time, I used a micropuncture needle to successfully get into the left subclavian vein. This was guidewire exchanged for a guidewire that came with one of the 7 [place] Island[place] sheaths. Next I used a PEAK PlasmaBlade to make an incision through the skin approximately 2-1/2 inches in length 1 cm below the skin entry site of the guidewire. The PEAK PlasmaBlade was used to get through the fatty layer and the Jg's fascia. The pacemaker pocket was then formed in a caudal direction using blunt dissection using two fingers to separate the Jg's fascia from the prepectoral fascia. Next the guidewire was pulled through the skin into the incision site. Next, I placed a 7 [place] Islander sheath with introducer over this guidewire and advanced it into the vein. The sheath and guidewire were left in place and the introducer was removed. Next, I took the guidewire from the other 7 [place]er sheath and placed it alongside the first guidewire within the 7 [place]er sheath. Next, I removed the 7 [place] sheath, leaving both guidewires in place in the vein. I then reintroduced the introducer into the sheath and then placed that over one of the two guidewires and advanced it into the vein. That was used for vein access for the right ventricular lead. The right ventricular lead was placed under fluoroscopic guidance into the right ventricular apex where it was secured with a total of 8 turns. This position was found to be electrically and anatomically satisfactory. The 7 [place]er sheath was then broken apart and removed. Next, another 7 [place] sheath with introducer was placed over the other guidewire and advanced into the vein. The introducer was removed, leaving the sheath in place and the guidewire was also removed. This was used for access for the right atrial lead. The right atrial lead was placed into the vicinity of the right atrial appendage where it was secured with a total of ten turns. The patient was in atypical atrial flutter during the operation. The atrial flutters were satisfactory for sensing but a capture threshold could not be obtained because of atypical atrial flutter. A 7 [place]er sheath was broken apart and removed. The atrial lead was then secured to the pectoral muscle and the ventricular lead was secured to the pectoral muscle. Both leads were secured using three individual sutures consisting of 0 Ethibond placed over notches on each of the supplied tie-down sleeves to secure both leads to the pectoral muscle. Next, I took another 0 Ethibond suture and placed it into the pectoral muscle in the lateral aspect of the pocket to serve as the tie-down for the pulse generator. Next, a medium sized TYRX envelope was cut into four pieces and placed into the pacemaker pocket. The terminal pins of the atrial and ventricular leads were then placed into the header and each one was secured by tightening the set screws with the hex screwdriver. A pull test was applied to each lead to demonstrate that it was secured within the header. Next, excess material was then coiled underneath the pacemaker pulse generator and placed into the pacemaker pocket with the pacemaker on top and excess lead material below. The pulse generator was then secured to the pectoral muscle with the previously placed 0 Ethibond suture. Next, I made an incision approximately 1.5 cm in length over the medial aspect of the patient's implantable loop recorder. I then used a snap to pull the loop recorder out. The deep layer of the pacemaker incision was closed using individual sutures consisting of 2-0 Vicryl. The skin was closed using janet for the pacemaker incision as well as janet used to close the incision used to remove the loop recorder. The incisions were both dressed with Bactroban ointment followed by Telfa followed by gauze followed by Tegaderm. A pressure dressing was applied over the pacemaker dressing. The patient received a left arm sling in the operating room. The pacemaker implanted was a Medtronic model W1DR01 Samia XT DR YE Worthy with serial #[id number]. The cardiac rhythm monitor removed was a Medtronic model LINQ11 with serial #[id number]. It was originally implanted 03/07/2021. The right atrial lead implanted was a Medtronic model 4076-52 cm with serial #[id number]. Testing with the pulse analyzer for the right atrial lead in bipolar configuration showed impedance of 418 ohms and flutter waves of 3.375 millivolts. Device based testing for the right atrial lead in the operating room showed flutter waves of 2.8 millivolts with lead impedance of 437 ohms. The right ventricular lead implanted was a Medtronic model 4076-58 cm with serial #[id number]. Testing in bipolar configuration with pulse analyzer for the right ventricular lead showed capture threshold of 0.625 volts and 0.4 milliseconds, a lead impedance of 684 ohms and R wave amplitude of 8.875 millivolts. Device based testing for the right ventricular lead in operating room showed R wave amplitude of 9.6 millivolts, a lead impedance of 741 ohms and capture threshold of 0.5 volts at 0.4 milliseconds.
[2021-08-05] MEDS ORDERED: allopurinoL 100 MG TAB PO SCH (21:00)
[2021-08-05] MEDS ORDERED: LOSARTAN 50MG TABLET PO SCH (21:00)
[2021-08-05] MEDS ORDERED: ATORVASTATIN 20 MG TAB PO SCH (21:00)
[2021-08-05] MEDS: ASCORBIC ACID 250 MG TAB PO SCH (21:56)
[2021-08-06] VITALS: BP 137/74
[2021-08-06] MEDS ORDERED: ACETAMINOPHEN TAB 650MG DOSE (2X325MG) PO PRN (03:35)
[2021-08-06 04:00] VITALS: BP 130/72
[2021-08-06 07:15] VITALS: BP 142/76
[2021-08-06] MEDS ORDERED: hydroCHLOROthiazide 12.5 MG CAPSULE PO SCH (09:00)
[2021-08-06] MEDS ORDERED: VITAMIN D 1,000 INTERNATIONAL UNITS TABLET PO SCH (09:00)
[2021-08-06] MEDS ORDERED: CLOPIDOGREL 75 MG TAB PO SCH (09:00)
[2021-08-06 09:20] VITALS: BP 142/76
[2021-08-06] MEDS: ASCORBIC ACID 250 MG TAB PO SCH (09:20)
[2021-08-06] MEDS: amLODIPine 5 MG TAB PO SCH (09:20)
--- NOTE | 2021-08-06 09:22 | REP ---
INDICATION: pacemaker. COMPARISON: Comparison chest x-ray is from 05 August 2021 at 7 p.m.. TECHNIQUE: Two views.. FINDINGS: The lungs are well inflated and free of infiltrate. The pleural angles are sharp. The heart size is normal. Pulmonary vasculature is not increased. No significant bony abnormality is seen. A left-sided transvenous bipolar pacemaker is been installed. There is no evidence of pneumothorax or hydrothorax. There are surgical clips adjacent to the power plant and projecting over the left hilus. There also surgical clips in the right upper quadrant of the abdomen. No acute bony abnormality. IMPRESSION: Pacemaker in place. No complication seen. <Electronically signed by Nic Gonzalez > 08/06/21 0919
--- NOTE | 2021-08-06 09:35 | REP ---
INDICATION: PACEMAKER INSERTION. COMPARISON: None. TECHNIQUE: Two views. 581.2 seconds of fluoroscopy time is reported. FINDINGS: A sequence of 2 last image hold fluoroscopically obtained spot radiographs of the chest document pacemaker lead position and loop recorder. IMPRESSION: Procedural imaging. <Electronically signed by Nic Gonzalez > 08/06/21 0922
[2021-08-06] MEDS ORDERED: ELIQ2.5T PO (10:35)
--- NOTE | 2021-08-06 11:08 | ECGEPIP ---
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 Increased heart rate and ventricular pacing new compared with 01/31/2021. Electronically Signed on 08-06-2021 11:07:38 EDT by Gerald Mendez
[2021-08-06 11:42] VITALS: BP 131/68
== END 2021-08-06 13:35 | disposition home or self-care (01) ==
LOC: M SDC 14:03 → M PCU 19:49 → UNDOADMIN 20:02 → M PCU 20:02 → M MS5PR 20:29 → M SDC 20:30 → UNDODISIN 08-06 13:35 → M SDC 08-06 13:35
PROVIDERS: ATTEND Internal Medicine Cardiovascular Disease
DX: I49.5 Sick sinus syndrome (principal); Z45.09 Encounter for adjustment and management of other cardiac device; I48.4 Atypical atrial flutter; Z95.5 Presence of coronary angioplasty implant and graft; I25.2 Old myocardial infarction; I11.9 Hypertensive heart disease without heart failure; I25.10 Atherosclerotic heart disease of native coronary artery without angina pectoris; Z90.5 Acquired absence of kidney; Z85.46 Personal history of malignant neoplasm of prostate; Z92.21 Personal history of antineoplastic chemotherapy; Z79.899 Other long term (current) drug therapy; Z79.01 Long term (current) use of anticoagulants; Z79.02 Long term (current) use of antithrombotics/antiplatelets
CPT/HCPCS: 33208; 33286; 71045; 71046; 76000; 93005; C1785; C1898; J0690; J1100; J2250; J2405; J3010; Q9967

== ENCOUNTER → 2022-04-13 | Outpatient (REF) | payer MEDICARE, OTHER ==
[~2022-04-13] MED LIST changes: -LEVO500T3 PO; +LEVO500T4 PO; -LIDOCAINE 2% 100MG/5ML SDV (FOR ANES.) As Ordered ONE; +LOSA100T45; -LOSA100T50; +LOSA25TA13 PO; -LOSA25TA14 PO; +LOSA50TA28 PO; -LOSA50TA88 PO; -LR 1,000 ML IV ONE; -MIDAZOLAM INJ 2MG/2ML VIAL (J2250 PER 1MG) As Ordered ONE; -ONDANSETRON 4MG/2ML VIAL As Ordered ONE; -ceFAZolin SOD 2 GM in IV 1 EA IV ONE; -dexameTHASONE 4 MG/ML 1ML VIAL (J1100 PER 1MG) As Ordered ONE; -fentaNYL 100 MCG/2 ML INJECTION (J3010) As Ordered ONE; -propofoL 200 MG/20 ML VIAL As Ordered ONE
[2022-04-13 17:38] LABS: AMORPHOUS SEDIMENT SMALL (NEGATIVE); APPEARANCE, URINE CLEAR (CLEAR); BACTERIA, URINE AUTO NEGATIVE (NEGATIVE); BILIRUBIN, URINE AUTO NEGATIVE (NEGATIVE); BLOOD, URINE BLOOD 2+ (NEGATIVE); COLOR, URINE YELLOW (YELLOW); GLUCOSE, URINE (UA) AUTO NEGATIVE (NEGATIVE); KETONE, URINE AUTO NEGATIVE (NEGATIVE); LEUKOCYTE ESTERASE, URINE AUTO NEGATIVE (NEGATIVE); NITRITE, URINE AUTO NEGATIVE (NEGATIVE); PROTEIN, URINE AUTO NEGATIVE (NEGATIVE); RBC, URINE AUTO 57 /HPF (0-3); SPECIFIC GRAVITY URINE AUTO 1.012 (1.002-1.035); SQUAMOUS EPITHELIAL CELL UR AU 0 /HPF (0-6); UROBILINOGEN, URINE AUTO 0.2 mg/dL (0.0-2.0); WBC, URINE AUTO 4 /HPF (0-3)
== END ==
LOC: M SMT 16:55
PROVIDERS: ATTEND Nurse Practitioner Women's Health
DX: R35.1 Nocturia (principal)

== ENCOUNTER → 2022-04-18 | Outpatient (REF) | payer MEDICARE, OTHER | LOC: M SFHCDERM 16:26 | PROVIDERS: ATTEND Dermatology | DX: L57.0 Actinic keratosis (principal) ==

== ENCOUNTER → 2022-06-02 | Outpatient (REF) | payer MEDICARE, OTHER ==
[~2022-06-02] MED LIST changes: +LEVO1TAB39 PO; -LEVO500T4 PO
[2022-06-02 13:07] LABS: TOTAL PROTEIN 6.3 GM/DL (6.4-8.2)
[2022-06-02 13:26] LABS: RBC, URINE TNTC /hpf (0-3)
[2022-06-02 13:27] LABS: BACTERIA, URINE NONE SEEN; HYALINE CAST, URINE NONE SEEN /lpf (0-1); MUCUS, URINE SMALL AMOUNT (NEGATIVE); SQUAMOUS EPITHELIAL CELL URINE NONE SEEN /hpf (SMALL AMT)
[2022-06-02 13:43] LABS: VITAMIN B12 LEVEL 500 PG/ML (247-911)
[2022-06-05 13:07] LABS: FREE KAPPA LIGHT CHAINS SERUM 15.5 mg/L (3.3-19.4); FREE LAMBDA LIGHT CHAINS SERUM 9.4 mg/L (5.7-26.3); KAPPA/LAMBDA RATIO SERUM 1.65 (0.26-1.65)
[2022-06-07 10:36] LABS: ALBUMIN 4.03 GM/DL (3.29-5.55); ALPHA-1-GLOBULIN % 4.5 % (2.9-4.9); ALPHA-2-GLOBULINS % 12.3 % (7.1-11.8); BETA-1-GLOBULINS % 6.1 % (4.7-7.2); BETA-2-GLOBULINS % 4.6 % (3.2-6.5); GAMMA GLOBULIN % 8.5 % (11.1-18.8)
[2022-06-07 10:37] LABS: ALPHA-1-GLOBULINS 0.28 GM/DL (0.17-0.41); ALPHA-2-GLOBULINS 0.77 GM/DL (0.42-0.99); BETA-1-GLOBULINS 0.38 GM/DL (0.28-0.60); BETA-2-GLOBULINS 0.29 GM/DL (0.19-0.55); GAMMA GLOBULINS 0.54 GM/DL (0.65-1.58)
== END ==
LOC: M LAB REF 12:03
PROVIDERS: ATTEND Internal Medicine
DX: R20.2 Paresthesia of skin (principal); R31.9 Hematuria, unspecified

== ENCOUNTER → 2022-06-13 | Outpatient (CLI) | payer MEDICARE, OTHER | LOC: M PLAIMG 13:56 | PROVIDERS: ATTEND Internal Medicine | DX: M99.71 Connective tissue and disc stenosis of intervertebral foramina of cervical region (principal); R20.2 Paresthesia of skin; M43.02 Spondylolysis, cervical region ==

== ENCOUNTER → 2022-07-27 | Outpatient (CLI) | payer MEDICARE, OTHER ==
[~2022-07-27] MED LIST changes: +ALLO100T PO; -AMLO1TAB24; +AMLO1TAB24 PO; +ASPI-163 PO; +ATOR1TAB21 PO; +CLOP75TA2 PO; +ELIQ5TAB PO; +FINA5TAB2 PO; -LOSA100T45; +LOSA100T45 PO; +MAG-400T7 PO; +TAMS1CAP17 PO
[2022-07-27 15:50] LABS: INR 1.13; PROTHROMBIN TIME 14.9 SECONDS (12.7-14.5)
[2022-07-27 16:22] LABS: ALBUMIN 3.7 GM/DL (3.2-5.2); CALCIUM LEVEL 9.4 MG/DL (8.8-10.2); CREATININE FOR GFR 1.28 MG/DL (0.70-1.30); GLOMERULAR FILTRATION RATE 56.6 (>35); POTASSIUM SERUM 3.9 MEQ/L (3.5-5.1); TOTAL PROTEIN 6.5 GM/DL (6.4-8.2)
== END ==
LOC: M RAD 14:15
PROVIDERS: ATTEND Urology
DX: N40.0 Benign prostatic hyperplasia without lower urinary tract symptoms (principal); Z79.01 Long term (current) use of anticoagulants

== ENCOUNTER → 2022-08-04 | Outpatient (REF) | payer MEDICARE, OTHER ==
[2022-08-04 17:25] LABS: APPEARANCE, URINE MANUAL HAZY (CLEAR); COLOR, URINE MANUAL RED (YELLOW)
[2022-08-04 17:38] LABS: BILIRUBIN, URINE MANUAL NEGATIVE (NEGATIVE); BLOOD URINE MANUAL POSITIVE (NEGATIVE); GLUCOSE, URINE (UA) MANUAL NEGATIVE (NEGATIVE); KETONE, URINE MANUAL NEGATIVE (NEGATIVE); LEUKOCYTE ESTERASE, URINE MAN TRACE (NEGATIVE); NITRITE, URINE MANUAL NEGATIVE (NEGATIVE); PH,URINE MAN 6.5 UNITS (5.0 - 7.0); PROTEIN, URINE MANUAL 1+ mg/dL (NEGATIVE); SPECIFIC GRAVITY,URINE MANUAL 1.005 (1.002-1.035); UROBILINOGEN, URINE MANUAL NORMAL (NORMAL)
[2022-08-04 17:55] LABS: AMORPHOUS SEDIMENT, URINE SMALL AMOUNT (NEGATIVE); BACTERIA, URINE NONE SEEN; HYALINE CAST, URINE NONE SEEN /lpf (0-1); RBC, URINE TNTC /hpf (0-3); SQUAMOUS EPITHELIAL CELL URINE NONE SEEN /hpf (SMALL AMT); TRANSITIONAL EPI CELLS, URINE SMALL AMOUNT /hpf
== END ==
LOC: M SMT 15:06
PROVIDERS: ATTEND Urology
DX: R33.8 Other retention of urine (principal)

== ENCOUNTER → 2022-08-10 | Outpatient (CLI) | payer MEDICARE, OTHER | LOC: M LABSMTC 09:30 | PROVIDERS: ATTEND Anesthesiology | DX: Z01.812 Encounter for preprocedural laboratory examination (principal); Z20.822 Contact with and (suspected) exposure to COVID-19 ==

== ENCOUNTER 2022-08-15 06:04 | Day surgery (SDC) | payer MEDICARE, OTHER ==
[~2022-08-15] VITALS: Ht 177.8 cm; Wt 94.0 kg
[~2022-08-15 06:04] MED LIST changes: +ceFAZolin SOD 2 GM in IV 1 EA IV ONE
[2022-08-15] MEDS ORDERED: LR 1,000 ML IV SCH ×2 (06:35→08:35)
[2022-08-15] MEDS ORDERED: AMOX875T (06:47)
[2022-08-15] MEDS ORDERED: fentaNYL 100 MCG/2 ML INJECTION As Ordered ONE (07:10)
[2022-08-15] MEDS ORDERED: propofoL 200 MG/20 ML VIAL As Ordered ONE (07:10)
[2022-08-15] MEDS ORDERED: LIDOCAINE 2% 100MG/5ML SDV (FOR ANES.) As Ordered ONE (07:10)
[2022-08-15] MEDS ORDERED: dexameTHASONE 4 MG/ML 1ML VIAL (J1100 PER 1MG) As Ordered ONE (07:11)
[2022-08-15] MEDS ORDERED: ONDANSETRON 4MG 2ML VIAL As Ordered ONE (07:11)
[2022-08-15] MEDS ORDERED: MIDAZOLAM INJ 2MG/2ML VIAL (J2250 PER 1MG) As Ordered ONE (07:27)
[2022-08-15] MEDS ORDERED: ACETAMINOPHEN 1000MG 100ML IV BTL (OFIRMEV) (J0131 PER 10MG) As Ordered ONE (07:49)
[2022-08-15] MEDS ORDERED: HYDROMORPHONE HCL 0.5 MG/ 0.5 ML SYRINGE (J1170 PER 1) IV PRN (08:35)
[2022-08-15] MEDS ORDERED: ONDANSETRON 4MG 2ML VIAL IV PRN (08:35)
[2022-08-15] MEDS ORDERED: fentaNYL 100 MCG/2 ML INJECTION IV PRN (08:35)
[2022-08-15] MEDS: oxyCODONE 5MG TAB PO PRN ×2 (08:50→09:49)
[2022-08-15] MEDS ORDERED: oxyBUTYnin 5 MG TAB PO ONE (10:25)
[2022-08-15] MEDS ORDERED: PYRI1TAB5 PO (10:31)
[2022-08-15] MEDS ORDERED: OXYB5TAB10 PO (10:31)
[2022-08-15] MEDS ORDERED: HYDR-3713 PO (10:31)
[2022-08-15 10:45] VITALS: BP 140/75
== END 2022-08-15 11:06 | disposition home or self-care (01) ==
LOC: M SDC 06:04
PROVIDERS: ATTEND Urology
DX: C79.82 Secondary malignant neoplasm of genital organs (principal); R33.9 Retention of urine, unspecified; I48.20 Chronic atrial fibrillation, unspecified; I49.5 Sick sinus syndrome; I48.3 Typical atrial flutter; I10 Essential (primary) hypertension; E78.5 Hyperlipidemia, unspecified; I25.2 Old myocardial infarction; Z95.5 Presence of coronary angioplasty implant and graft; Z95.0 Presence of cardiac pacemaker; R07.9 Chest pain, unspecified; D64.9 Anemia, unspecified; I25.10 Atherosclerotic heart disease of native coronary artery without angina pectoris; I35.2 Nonrheumatic aortic (valve) stenosis with insufficiency; Z87.891 Personal history of nicotine dependence; Z85.528 Personal history of other malignant neoplasm of kidney; Z90.5 Acquired absence of kidney; Z79.899 Other long term (current) drug therapy; Z79.01 Long term (current) use of anticoagulants; Z79.82 Long term (current) use of aspirin; Z96.0 Presence of urogenital implants
CPT/HCPCS: 52601; 88305; 88341; 88342; J0131; J0690; J1100; J1170; J2405; J3010

== ENCOUNTER 2022-08-19 19:05 | Emergency (ER) | payer MEDICARE, OTHER ==
[~2022-08-19] VITALS: Ht 177.8 cm; Wt 94.1 kg
[~2022-08-19 19:05] MED LIST changes: +AMOX875T; +HYDR-3713 PO; +OXYB5TAB10 PO; +PYRI1TAB5 PO; -ceFAZolin SOD 2 GM in IV 1 EA IV ONE
[2022-08-19] MEDS ORDERED: NS 500 ML IV ONE (20:00)
[2022-08-19 20:29] LABS: BASO # 0.1 10^3/uL (0.0-0.2); BASO % 0.5 % (0.0-1.0); EOS # 0.4 10^3/uL (0.0-0.5); EOS % 2.8 % (0.0-3.0); HEMATOCRIT 37.3 % (42.0-52.0); HEMOGLOBIN 12.5 g/dl (13.5-17.5); LYMPH # 1.4 10^3/uL (1.5-5.0); LYMPH % 10.3 % (24.0-44.0); MEAN CORPUSCULAR HEMOGLOBIN 31.4 pg (27.0-33.0); MEAN CORPUSCULAR HGB CONC 33.5 g/dl (32.0-36.5); MEAN CORPUSCULAR VOLUME 93.7 fl (80.0-96.0); MONO % 7.9 % (2.0-8.0); NEUTROPHILS # 10.2 10^3/uL (1.5-8.5); NEUTROPHILS % 77.8 % (36.0-66.0); PLATELET COUNT, AUTOMATED 196 10^3/uL (150-450); RED BLOOD COUNT 3.98 10^6/uL (4.30-6.10); WHITE BLOOD COUNT 13.1 10^3/uL (4.0-10.0)
[2022-08-19 20:43] LABS: INR 0.92; PROTHROMBIN TIME 12.6 SECONDS (12.5-14.5)
[2022-08-19 20:44] LABS: PARTIAL THROMBOPLASTIN TIME 33.2 SECONDS (24.8-34.2)
[2022-08-19 21:02] LABS: BLOOD UREA NITROGEN 26 MG/DL (7-18); CALCIUM LEVEL 9.2 MG/DL (8.8-10.2); CARBON DIOXIDE LEVEL 28 MEQ/L (21-32); CHLORIDE LEVEL 101 MEQ/L (98-107); CREATININE FOR GFR 1.16 MG/DL (0.70-1.30); GLOMERULAR FILTRATION RATE > 60.0 (>35); GLUCOSE, FASTING 130 MG/DL (70-100); POTASSIUM SERUM 4.3 MEQ/L (3.5-5.1); SODIUM LEVEL 134 MEQ/L (136-145)
[2022-08-19] MEDS ORDERED: GENTAMICIN SULF 80MG/2ML VIAL IM ONE (23:00)
[2022-08-19] MEDS ORDERED: AMOX875T2 PO (23:14)
[2022-08-19 23:23] VITALS: BP 141/82
== END 2022-08-19 23:35 | disposition home or self-care (01) ==
LOC: M ED 19:05
DX: R33.9 Retention of urine, unspecified (principal); T83.091A Other mechanical complication of indwelling urethral catheter, initial encounter; N40.1 Benign prostatic hyperplasia with lower urinary tract symptoms; I10 Essential (primary) hypertension; I48.91 Unspecified atrial fibrillation; E78.5 Hyperlipidemia, unspecified; Z79.82 Long term (current) use of aspirin; Z79.899 Other long term (current) drug therapy
CPT/HCPCS: 80048; 85025; 85610; 85730; 86850; 86900; 86901; 93005; 96360; 96361; 96372; 99284; J1580

== ENCOUNTER → 2022-09-14 | Outpatient (CLI) | payer MEDICARE, OTHER ==
[~2022-09-14] MED LIST changes: +AMOX875T2 PO; +CLOP75TA99 PO; -PLAV1TAB2 PO
== END ==
LOC: M RAD 16:55
PROVIDERS: ATTEND Nurse Practitioner
DX: C61 Malignant neoplasm of prostate (principal)

== ENCOUNTER → 2022-10-19 | Outpatient (CLI) | payer MEDICARE, OTHER ==
[~2022-10-19] VITALS: Ht 177.8 cm; Wt 96.1 kg
[~2022-10-19] MED LIST changes: +FENT12DI12 TOP; +FURO20TA2 PO; +GLUC1TAB58 PO; +LOTR52CA PO; +MULT1TAB8 PO; +ONDA8TAB8 PO; +OXYC-600 PO; +PROC10TA5 PO
[2022-10-19 13:14] VITALS: BP 109/57
== END ==
LOC: M PAL 13:01
PROVIDERS: ATTEND Nurse Practitioner Adult Health
DX: C61 Malignant neoplasm of prostate (principal); C77.2 Secondary and unspecified malignant neoplasm of intra-abdominal lymph nodes; C77.5 Secondary and unspecified malignant neoplasm of intrapelvic lymph nodes; Z85.528 Personal history of other malignant neoplasm of kidney; I25.2 Old myocardial infarction; Z95.0 Presence of cardiac pacemaker; I10 Essential (primary) hypertension; E78.5 Hyperlipidemia, unspecified; Z90.89 Acquired absence of other organs; Z90.49 Acquired absence of other specified parts of digestive tract; Z51.5 Encounter for palliative care; Z66 Do not resuscitate; Z79.891 Long term (current) use of opiate analgesic; Z79.899 Other long term (current) drug therapy; Z79.82 Long term (current) use of aspirin

== ENCOUNTER → 2022-11-24 | Outpatient (CLI) | payer MEDICARE, OTHER ==
[~2022-11-24] MED LIST changes: +GASTROGRAFIN SOLUTION 30ML As Ordered ONE; +HYDR12.55; +ISOVUE-370 76% 100ML VIAL As Ordered ONE; +LOSA100T45; +NOXI1TAB PO
== END ==
LOC: M RAD 12:20
PROVIDERS: ATTEND Nurse Practitioner
DX: C61 Malignant neoplasm of prostate (principal)
CPT/HCPCS: 74177; Q9963; Q9967

== ENCOUNTER 2022-12-06 21:20 | Emergency (ER) | payer MEDICARE, OTHER ==
[~2022-12-06] VITALS: Ht 177.8 cm; Wt 95.2 kg
[~2022-12-06 21:20] MED LIST changes: -GASTROGRAFIN SOLUTION 30ML As Ordered ONE; -ISOVUE-370 76% 100ML VIAL As Ordered ONE; +XTAN40CA PO
[2022-12-06 22:27] LABS: BASO # 0.1 10^3/uL (0.0-0.2); BASO % 1.1 % (0.0-1.0); EOS # 0.4 10^3/uL (0.0-0.5); EOS % 5.1 % (0.0-3.0); HEMATOCRIT 40.4 % (42.0-52.0); HEMOGLOBIN 13.6 g/dl (13.5-17.5); LYMPH # 1.1 10^3/uL (1.5-5.0); LYMPH % 14.6 % (24.0-44.0); MEAN CORPUSCULAR HEMOGLOBIN 30.7 pg (27.0-33.0); MEAN CORPUSCULAR HGB CONC 33.7 g/dl (32.0-36.5); MEAN CORPUSCULAR VOLUME 91.2 fl (80.0-96.0); MONO # 0.7 10^3/uL (0.0-0.8); MONO % 9.2 % (2.0-8.0); NEUTROPHILS # 5.3 10^3/uL (1.5-8.5); NEUTROPHILS % 69.3 % (36.0-66.0); PLATELET COUNT, AUTOMATED 198 10^3/uL (150-450); RED BLOOD COUNT 4.43 10^6/uL (4.30-6.10); WHITE BLOOD COUNT 7.6 10^3/uL (4.0-10.0)
[2022-12-06] MEDS ORDERED: LIDOCAINE 2% 5ML JELLY UROJET As Ordered ONE (22:27)
[2022-12-06 22:51] LABS: BLOOD UREA NITROGEN 35 MG/DL (9-23); CALCIUM LEVEL 9.2 MG/DL (8.3-10.6); CARBON DIOXIDE LEVEL 25 MMOL/L (20-31); CHLORIDE LEVEL 103 MMOL/L (98-107); CREATININE FOR GFR 1.21 MG/DL (0.70-1.30); GLOMERULAR FILTRATION RATE > 60.0 (>35); GLUCOSE, FASTING 120 MG/DL (74-106); SODIUM LEVEL 138 MMOL/L (136-145)
[2022-12-06 23:36] LABS: RSV AMPLIFICATION NEGATIVE (NEGATIVE)
[2022-12-06 23:44] LABS: INR 0.94; PROTHROMBIN TIME 12.8 SECONDS (12.5-14.5)
[2022-12-06 23:45] LABS: PARTIAL THROMBOPLASTIN TIME 35.8 SECONDS (24.8-34.2)
[2022-12-07] MEDS ORDERED: ONDANSETRON 4MG 2ML VIAL IV ONE (00:20)
[2022-12-07] MEDS ORDERED: MORPHINE 4 MG/ML 1ML VIAL IV PRN (00:20)
[2022-12-07 01:05] VITALS: BP 135/68
[2022-12-07 05:57] LABS: APPEARANCE, URINE MANUAL TURBID (CLEAR); BILIRUBIN, URINE MANUAL NEGATIVE (NEGATIVE); COLOR, URINE MANUAL RED (YELLOW); GLUCOSE, URINE (UA) MANUAL NEGATIVE (NEGATIVE); KETONE, URINE MANUAL NEGATIVE (NEGATIVE); LEUKOCYTE ESTERASE, URINE MAN TRACE (NEGATIVE); NITRITE, URINE MANUAL NEGATIVE (NEGATIVE); PH,URINE MAN 5.5 UNITS (5.0 - 7.0); PROTEIN, URINE MANUAL 2+ mg/dL (NEGATIVE); UROBILINOGEN, URINE MANUAL NORMAL (NORMAL)
[2022-12-07 05:58] LABS: BLOOD URINE MANUAL POSITIVE (NEGATIVE)
[2022-12-07 05:59] LABS: BACTERIA, URINE SMALL AMOUNT; HYALINE CAST, URINE NONE SEEN /lpf (0-1); RBC, URINE TNTC /hpf (0-3); SQUAMOUS EPITHELIAL CELL URINE NONE SEEN /hpf (SMALL AMT)
== END 2022-12-07 05:06 | disposition home or self-care (01) ==
LOC: M ED 21:20
DX: R33.9 Retention of urine, unspecified (principal); R31.9 Hematuria, unspecified; I10 Essential (primary) hypertension; C61 Malignant neoplasm of prostate; E78.5 Hyperlipidemia, unspecified; Z95.5 Presence of coronary angioplasty implant and graft; C67.9 Malignant neoplasm of bladder, unspecified; Z79.899 Other long term (current) drug therapy
CPT/HCPCS: 51702; 80048; 81000; 85025; 85610; 85730; 87086; 87631; 96374; 96375; 99284; J2270; J2405

== ENCOUNTER 2022-12-09 13:57 | Emergency (ER) | payer MEDICARE, OTHER ==
[~2022-12-09] VITALS: Ht 177.8 cm; Wt 96.8 kg
[2022-12-09] MEDS ORDERED: TAMS1CAP17 (14:31)
[2022-12-09] MEDS ORDERED: OXYB5TAB10 (14:31)
[2022-12-09] MEDS ORDERED: NYST10006 (14:31)
[2022-12-09] MEDS ORDERED: CEPH500C (14:31)
[2022-12-09] MEDS ORDERED: FINA5TAB2 (14:31)
[2022-12-09] MEDS ORDERED: CLOP75TA2 (14:48)
[2022-12-09 15:22] LABS: HEMATOCRIT 36.4 % (42.0-52.0); MEAN CORPUSCULAR HEMOGLOBIN 30.3 pg (27.0-33.0); MEAN CORPUSCULAR VOLUME 91.9 fl (80.0-96.0); PLATELET COUNT, AUTOMATED 176 10^3/uL (150-450); RED BLOOD COUNT 3.96 10^6/uL (4.30-6.10); WHITE BLOOD COUNT 9.4 10^3/uL (4.0-10.0)
[2022-12-09 15:51] LABS: CALCIUM LEVEL 8.9 MG/DL (8.3-10.6); CREATININE FOR GFR 1.28 MG/DL (0.70-1.30); GLOMERULAR FILTRATION RATE 56.5 (>35); POTASSIUM SERUM 4.4 MMOL/L (3.5-5.1)
[2022-12-09 17:15] VITALS: BP 132/62
== END 2022-12-09 17:39 | disposition home or self-care (01) ==
LOC: M ED 13:57
DX: R31.9 Hematuria, unspecified (principal); T83.091A Other mechanical complication of indwelling urethral catheter, initial encounter; I25.10 Atherosclerotic heart disease of native coronary artery without angina pectoris; I10 Essential (primary) hypertension; E78.5 Hyperlipidemia, unspecified; C61 Malignant neoplasm of prostate; Z79.899 Other long term (current) drug therapy

== ENCOUNTER → 2023-01-04 | Outpatient (CLI) | payer MEDICARE, OTHER ==
[~2023-01-04] VITALS: Ht 177.8 cm; Wt 93.0 kg
[~2023-01-04] MED LIST changes: +CEPH500C; +CLOP75TA2; -LOSA100T45; +NYST10006; +OXYB5TAB10
[2023-01-04 11:02] VITALS: BP 119/73
== END ==
LOC: M PAL 10:51
PROVIDERS: ATTEND Nurse Practitioner Adult Health
DX: C61 Malignant neoplasm of prostate (principal); C77.2 Secondary and unspecified malignant neoplasm of intra-abdominal lymph nodes; C77.5 Secondary and unspecified malignant neoplasm of intrapelvic lymph nodes; R53.83 Other fatigue; M79.604 Pain in right leg; Z85.528 Personal history of other malignant neoplasm of kidney; Z51.5 Encounter for palliative care; I25.2 Old myocardial infarction; Z95.0 Presence of cardiac pacemaker; I10 Essential (primary) hypertension; E78.5 Hyperlipidemia, unspecified; Z90.89 Acquired absence of other organs; Z90.49 Acquired absence of other specified parts of digestive tract; Z66 Do not resuscitate; Z79.891 Long term (current) use of opiate analgesic; Z79.82 Long term (current) use of aspirin; Z79.899 Other long term (current) drug therapy

== ENCOUNTER → 2023-01-11 | Outpatient (CLI) | payer MEDICARE, OTHER | LOC: M RAD 14:31 | PROVIDERS: ATTEND General Practice | DX: C79.51 Secondary malignant neoplasm of bone (principal) ==

== ENCOUNTER → 2023-01-11 | Outpatient (CLI) | payer MEDICARE, OTHER ==
[~2023-01-11] MED LIST changes: +ONDA4TAB6 PO
== END ==
LOC: M ONCR 13:04
PROVIDERS: ATTEND General Practice
DX: C61 Malignant neoplasm of prostate (principal); C79.51 Secondary malignant neoplasm of bone; C78.7 Secondary malignant neoplasm of liver and intrahepatic bile duct; E79.0 Hyperuricemia without signs of inflammatory arthritis and tophaceous disease; I11.9 Hypertensive heart disease without heart failure; M50.90 Cervical disc disorder, unspecified, unspecified cervical region; R01.1 Cardiac murmur, unspecified; Z79.01 Long term (current) use of anticoagulants; Z79.818 Long term (current) use of other agents affecting estrogen receptors and estrogen levels; Z79.891 Long term (current) use of opiate analgesic; Z79.899 Other long term (current) drug therapy; Z82.41 Family history of sudden cardiac death; Z85.828 Personal history of other malignant neoplasm of skin; Z90.49 Acquired absence of other specified parts of digestive tract; Z90.89 Acquired absence of other organs
CPT/HCPCS: 73590; G0463

== ENCOUNTER 2023-01-22 15:53 | Emergency (ER) | payer MEDICARE, OTHER ==
[~2023-01-22 15:53] MED LIST changes: -ONDA4TAB6 PO
[2023-01-22 19:51] VITALS: BP 153/82
[2023-01-23] MEDS ORDERED: ONDA4TAB6 PO ×2 (13:31→13:37)
== END 2023-01-22 19:55 | disposition home or self-care (01) ==
LOC: M ED 15:53 → EDBD 15:53 → M ED 19:55
DX: M43.12 Spondylolisthesis, cervical region (principal); M50.21 Other cervical disc displacement, high cervical region; M25.78 Osteophyte, vertebrae; R56.9 Unspecified convulsions; S22.019A Unspecified fracture of first thoracic vertebra, initial encounter for closed fracture; S42.202A Unspecified fracture of upper end of left humerus, initial encounter for closed fracture; W19.XXXA Unspecified fall, initial encounter; Z95.0 Presence of cardiac pacemaker; I48.91 Unspecified atrial fibrillation; I25.2 Old myocardial infarction; I10 Essential (primary) hypertension; E03.9 Hypothyroidism, unspecified; Z90.5 Acquired absence of kidney; Z85.46 Personal history of malignant neoplasm of prostate; Z79.899 Other long term (current) drug therapy

== ENCOUNTER 2023-01-25 13:05 | Outpatient (RCR) | payer MEDICARE, OTHER ==
[~2023-01-25 13:05] MED LIST changes: +ONDA4TAB6 PO
== END 2023-02-02 ==
LOC: M ONCR 13:05
PROVIDERS: ATTEND General Practice
DX: C79.51 Secondary malignant neoplasm of bone (principal)

== ENCOUNTER 2023-01-25 14:43 | Emergency (ER) | payer MEDICARE, OTHER ==
[~2023-01-25] VITALS: Ht 177.8 cm; Wt 96.4 kg
[2023-01-25 16:15] VITALS: BP 147/66
== END 2023-01-25 16:50 | disposition left against medical advice (07) ==
LOC: M ED 14:43
DX: I10 Essential (primary) hypertension (principal); Z53.20 Procedure and treatment not carried out because of patient's decision for unspecified reasons; I48.91 Unspecified atrial fibrillation; I25.2 Old myocardial infarction; N40.0 Benign prostatic hyperplasia without lower urinary tract symptoms; Z90.49 Acquired absence of other specified parts of digestive tract; R94.31 Abnormal electrocardiogram [ECG] [EKG]; Z79.899 Other long term (current) drug therapy